=== PATIENT | female | born 1960 | race Caucasian/White ===

== ENCOUNTER 2017-01-15 17:50 | Emergency (ER) | payer OTHER ==
[2017-01-15 19:07] LABS: HEMOGLOBIN 14.5 gm/dl (12.3-15.3); RED BLOOD COUNT 4.89 M/UL (4.00-5.10); WHITE BLOOD COUNT 8.9 K/UL (4.5-11.0)
[2017-01-15 19:23] LABS: BUN/CREATININE RATIO 18 (0-10)
== END 2017-01-15 21:18 | disposition home or self-care (01) ==
LOC: ER1 17:50
PROVIDERS: Emergency Medicine
DX: N39.0 Urinary tract infection, site not specified (principal)
CPT/HCPCS: 36415; 80053; 81001; 83605; 84484; 85025; 87086; 96361; 96374; 96375; 99284; J1885; J2405; J7050; Q9962

== ENCOUNTER 2021-05-03 17:45 | Inpatient (IN) | payer MEDICARE, OTHER ==
[~2021-05-03] VITALS: Ht 165.1 cm; Wt 97.1 kg
[~2021-05-03 17:45] MED LIST: ANTIVERT 25MG T25 MG PO; BUSPAR 5MG TABLE5 MG PO; CEFUROXIME500 MG PO; NAPROSYN500 MG PO; REGLAN10 MG PO
[2021-05-03 18:32] LABS: HEMOGLOBIN 13.7 gm/dl (12.3-15.3); RED BLOOD COUNT 4.49 M/UL (4.00-5.10); WHITE BLOOD COUNT 10.3 K/UL (4.5-11.0)
[2021-05-03 19:07] LABS: BUN/CREATININE RATIO 8 (0-10)
[2021-05-03] MEDS ORDERED: BUSPIRONE HCL5 MG PO (23:54)
[2021-05-03] MEDS ORDERED: ANTIVERT 12.512.5 MG PO (23:56)
[2021-05-03] MEDS ORDERED: BROMPHENIR-PSE118 ML PO (23:57)
[2021-05-03] MEDS ORDERED: ESOMEPRAZOLE MA40 MG PO (23:58)
[2021-05-03] MEDS ORDERED: ONDANSETRON HCL4 MG PO (23:58)
[2021-05-03] MEDS ORDERED: PROTONIX 40 MG40 M1 PO (23:59)
[2021-05-03] MEDS ORDERED: BUSPAR 10MG10 MG PO (23:59)
[2021-05-04] MEDS ORDERED: DULOXETINE HCL60 MG PO
[2021-05-04] MEDS ORDERED: GABAPENTIN600 MG PO (00:01)
[2021-05-04 06:28] LABS: HEMOGLOBIN 12.3 gm/dl (12.3-15.3); RED BLOOD COUNT 4.11 M/UL (4.00-5.10)
[2021-05-04 06:34] LABS: WHITE BLOOD COUNT 6.5 K/UL (4.5-11.0)
[2021-05-04 06:54] LABS: BUN/CREATININE RATIO 9 (0-10)
[2021-05-05 06:49] LABS: HEMOGLOBIN 10.9 gm/dl (12.3-15.3)
[2021-05-05 06:52] LABS: RED BLOOD COUNT 3.66 M/UL (4.00-5.10)
[2021-05-05 07:13] LABS: BUN/CREATININE RATIO 14 (0-10)
[2021-05-05] MEDS ORDERED: DECADRON6 MG PO (11:38)
[2021-05-06 06:49] LABS: HEMOGLOBIN 11.7 gm/dl (12.3-15.3); RED BLOOD COUNT 3.93 M/UL (4.00-5.10); WHITE BLOOD COUNT 7.4 K/UL (4.5-11.0)
[2021-05-06 08:43] LABS: BUN/CREATININE RATIO 14 (0-10)
[2021-05-06] MEDS ORDERED: AMLODIPINE BESYL5 MG PO (09:57)
== END 2021-05-06 11:58 | disposition home or self-care (01) | DRG 177 ==
LOC: ER1 17:45 → MED SURG 4 20:41 → CDU 20:41 → MED SURG 4 22:52
PROVIDERS: Emergency Medicine; Internal Medicine; ADMIT Internal Medicine
PROC: XW033E5 Introduction of Remdesivir Anti-infective into Peripheral Vein, Percutaneous Approach, New Technology Group 5 (ICD-10-PCS; principal; 2021-05-03)
PROC: 3E0333Z Introduction of Anti-inflammatory into Peripheral Vein, Percutaneous Approach (ICD-10-PCS; 2021-05-03)
PROC: 8E0ZXY6 Isolation (ICD-10-PCS; 2021-05-03)
PROC: XW033H5 Introduction of Tocilizumab into Peripheral Vein, Percutaneous Approach, New Technology Group 5 (ICD-10-PCS; 2021-05-03)
PROC: B24BZZ4 Ultrasonography of Heart with Aorta, Transesophageal (ICD-10-PCS; 2021-05-03)
DX: U07.1 COVID-19 (principal); J96.01 Acute respiratory failure with hypoxia; J12.82 Pneumonia due to coronavirus disease 2019; F41.9 Anxiety disorder, unspecified; F32.9 Major depressive disorder, single episode, unspecified; G89.29 Other chronic pain; E87.6 Hypokalemia; E86.0 Dehydration; I10 Essential (primary) hypertension; Z68.30 Body mass index [BMI] 30.0-30.9, adult; Z83.3 Family history of diabetes mellitus; Z81.1 Family history of alcohol abuse and dependence; Z99.81 Dependence on supplemental oxygen; Z23 Encounter for immunization
CPT/HCPCS: ECHO; 36415; 36600; 70450; 70551; 71045; 80053; 81001; 82550; 82553; 82607; 82728; 82746; 82803; 83605; 83615; 83690; 83735; 83880; 84132; 84439; 84443; 84484; 85025; 85027; 85379; 86140; 87040; 93005; 93306; 93880; 94640; 94664; 94760; 99285; C9113; J0696; J1100; J1650; J7030; Q9967; U0002